=== PATIENT | female | born 1965 | race African-American/Black ===

== ENCOUNTER → 2017-05-12 | Day surgery (SDC) | payer BC ==
--- NOTE | 2017-05-12 09:35 | ULT ---
ULTRASOUND GUIDED CORE BIOPSY: Date: 05/12/17 HISTORY: Suspicious mass within the lateral aspect of the left breast. FINDINGS: Informed consent for ultrasound guided core biopsy of the left breast mass obtained prior to the pro cedure. Preprocedural imaging reidentified a hypoechoic, shadowing, irregular solid mass at the 3 o'clock po sition of the left breast measuring in the 6-7 mm range. Skin overlying the lesion was prepped and draped in the normal sterile fashion and anesthetized with 1% buffered lidocaine. With direct sonographic guidance, three 14 gauge core biopsies were obtained through the lesion. Imaging demonstrates the biopsy needle to pass through the lesion on all three passes. Subsequently, a post biopsy clip was placed within the lesion. The patient was sent to mammo graphy to confirm marker placement. The patient tolerated the procedure well. IMPRESSION: Successful ultrasound guided core biopsy of left breast mass as detailed above. POS: MASON
--- NOTE | 2017-05-12 10:11 | MMO ---
DIAGNOSTIC MAMMOGRAM: Date: 05-12-17 History: 52-year-old female with a suspicious lesion at the 3 o'clock position of the left breast st atus post ultrasound guided core biopsy. This study was performed to evaluate post biopsy clip place ment. FINDINGS: This study is interpreted with the assistance of computer aided detection. The breast parenchyma is heterogeneously dense, limiting mammographic sensitivity. The post biopsy clip is seen within the upper outer left breast overlying the area of concern on tammy or mammography. There are punctate nonspecific calcifications in this region. The clip is in the reg ion of a subtle irregular mass, partially obscured by post biopsy change. IMPRESSION: 1. BIRADS 4 - suspicious abnormality. 2. Successful clip placement in proper position, overlying the region of concern seen on prior mammo graphy. Pathology pending. POS: MASON
== END ==
LOC: ULT 08:24
PROVIDERS: ATTEND Family Medicine
PROC: 0HBU3ZX Excision of Left Breast, Percutaneous Approach, Diagnostic (ICD-10-PCS; principal; 2017-05-12)
PROC: BH01ZZZ Plain Radiography of Left Breast (ICD-10-PCS; principal; 2017-05-12)
DX: R92.8 Other abnormal and inconclusive findings on diagnostic imaging of breast (principal)
CPT/HCPCS: 19083; 88305; 88361; G0206-LT

== ENCOUNTER 2018-05-21 14:33 | Outpatient (CLI) | payer BC | END 2018-05-21 14:34 | disposition home or self-care (01) | LOC: BICMAMMO 14:33 | PROVIDERS: ATTEND Radiology Radiation Oncology | DX: C50.912 Malignant neoplasm of unspecified site of left female breast (principal); Z85.3 Personal history of malignant neoplasm of breast; Z98.890 Other specified postprocedural states | CPT/HCPCS: 77066; G0279 ==

== ENCOUNTER 2018-12-30 12:56 | Outpatient (CLI) | payer BC ==
--- NOTE | 2018-12-30 13:45 | BD ---
DEXA BONE SCAN: HISTORY: Age-related osteoporosis. DEXA bone scan was performed using Hologic bone mineral density unit. FINDINGS: Lumbar Spine: BMD (g/cm2) L1 0.93 T-Score: -0.6 Z-Score: -0.3 L2 0.94 T-Score: -0.8 Z-Score: -0.5 L3 1.04 T-Score: -0.4 Z-Score: -0.1 L4 0.97 T-Score: -0.8 Z-Score: -0.5 L1-L4 0.97 T-Score: -0.7 Z-Score: -0.4 Left Hip: Femoral Neck: 0.71 T-Score: -1.2 Z-Score: -0.8 Total Femur: 0.95 T-Score: 0.0 Z-Score: 0.0 Findings compatible with osteopenia. The patient has the following bone mineral fracture risk: Major osteoporotic fracture risk of 3.6% a nd hip fracture risk of 0.2%. IMPRESSION: Normal bone mineral density. The patient does not have significant increased risk of osteoporotic fra ctures. Transcribed Date/Time: 12/30/2018 2:33 PM
== END 2018-12-30 12:57 | disposition home or self-care (01) ==
LOC: BICMAMMO 12:56
PROVIDERS: ATTEND Internal Medicine Medical Oncology
DX: Z13.820 Encounter for screening for osteoporosis (principal); C50.412 Malignant neoplasm of upper-outer quadrant of left female breast
CPT/HCPCS: 77080

== ENCOUNTER 2019-05-26 09:35 | Outpatient (CLI) | payer BC ==
--- NOTE | 2019-05-26 10:27 | MMO ---
Bilateral MAMMO Bilat Diag [facility]. CLINICAL HISTORY: Patient is 54 years old and is seen for diagnostic exam. The patient has no family history of breast cancer. The patient has a history of Stereotactic core biopsy procedure revealed invasive ductal left breast carcinoma in April,. The patient has a history of left Excisional Biopsy in 2008 - benign, left Excisional Biopsy in 2006 - benign and left Excisional Biopsy in November 2004 - benign. VIEWS: The views performed were: bilateral craniocaudal with tomosynthesis; bilateral mediolateral oblique with tomosynthesis; and bilateral mediolateral with tomosynthesis. FILMS COMPARED: The present examination has been compared to prior imaging studies performed at [facility] on 09/25/2015, 01/27/2017, 02/09/2017 and 05/21/2018. This study has been interpreted with the assistance of computer-aided detection. MAMMOGRAM FINDINGS: The breasts are heterogeneously dense, which could obscure a lesion on mammography. There are no suspicious masses, suspicious calcifications, or new areas of architectural distortion. IMPRESSION: THERE IS NO MAMMOGRAPHIC EVIDENCE OF MALIGNANCY. A ROUTINE FOLLOW-UP MAMMOGRAM IN 1 YEAR IS RECOMMENDED. THE RESULTS OF THIS EXAM WERE SENT TO THE PATIENT. ACR BI-RADS Category 1 - Negative MAMMOGRAPHY NOTE: 1. A negative mammogram report should not delay a biopsy if a dominant of clinically suspicious mass is present. 2. Approximately 10% to 15% of breast cancers are not detected by mammography. 3. Adenosis and dense breasts may obscure an underlying neoplasm. Reported by: Aquilino BRAGG Electonically Signed: [id number]
== END 2019-05-26 09:36 | disposition home or self-care (01) ==
LOC: BICMAMMO 09:35
PROVIDERS: ATTEND Family Medicine
DX: C50.919 Malignant neoplasm of unspecified site of unspecified female breast (principal)
CPT/HCPCS: 77066; G0279

== ENCOUNTER 2020-05-28 10:06 | Outpatient (CLI) | payer BC ==
--- NOTE | 2020-05-28 10:36 | MMO ---
Bilateral MAMMO Bilat Diag [facility]. CLINICAL HISTORY: Patient is 55 years old and is seen for screening. The patient has no family history of breast cancer. The patient has a history of Stereotactic core biopsy procedure revealed invasive ductal left breast carcinoma in April,. The patient has a history of left Stereotatic Biopsy in 2016 - invasive ductal carcinoma, left Lumpectomy in 2016 - invasive ductal carcinoma, left Excisional Biopsy in 2008 - benign, left Excisional Biopsy in 2006 - benign and left Excisional Biopsy in November 2004 - benign. VIEWS: The views performed were: bilateral craniocaudal with tomosynthesis; bilateral mediolateral oblique with tomosynthesis; and bilateral mediolateral with tomosynthesis. FILMS COMPARED: The present examination has been compared to prior imaging studies performed at [facility] on 01/27/2017, 02/09/2017, 05/21/2018 and 05/26/2019. This study has been interpreted with the assistance of computer-aided detection. MAMMOGRAM FINDINGS: The breasts are heterogeneously dense, which could obscure a lesion on mammography. There is a stable post-surgical scar seen in the left breast. There are no suspicious masses, suspicious calcifications, or new areas of architectural distortion. IMPRESSION: THERE IS NO MAMMOGRAPHIC EVIDENCE OF MALIGNANCY. A ROUTINE FOLLOW-UP MAMMOGRAM IN 1 YEAR IS RECOMMENDED. THE RESULTS OF THIS EXAM WERE SENT TO THE PATIENT. ACR BI-RADS Category 2 - Benign finding MAMMOGRAPHY NOTE: 1. A negative mammogram report should not delay a biopsy if a dominant of clinically suspicious mass is present. 2. Approximately 10% to 15% of breast cancers are not detected by mammography. 3. Adenosis and dense breasts may obscure an underlying neoplasm. Reported by: JOHN TOTH MD Electonically Signed: [id number]
== END 2020-05-28 10:07 | disposition home or self-care (01) ==
LOC: BICMAMMO 10:06
PROVIDERS: ATTEND Family Medicine
DX: C50.912 Malignant neoplasm of unspecified site of left female breast (principal)
CPT/HCPCS: 77066; G0279

== ENCOUNTER 2021-06-04 08:59 | Outpatient (CLI) | payer BC | END 2021-06-04 09:00 | disposition home or self-care (01) | LOC: BICMAMMO 08:59 | PROVIDERS: ATTEND Family Medicine | DX: C50.412 Malignant neoplasm of upper-outer quadrant of left female breast (principal) | CPT/HCPCS: 77066; G0279 ==

== ENCOUNTER 2022-06-06 08:07 | Outpatient (CLI) | payer BC | END 2022-06-06 08:08 | disposition home or self-care (01) | LOC: BICMAMMO 08:07 | PROVIDERS: ATTEND Internal Medicine Medical Oncology | DX: M85.89 Other specified disorders of bone density and structure, multiple sites (principal); C50.412 Malignant neoplasm of upper-outer quadrant of left female breast; Z98.890 Other specified postprocedural states | CPT/HCPCS: 77066; 77080; G0279 ==

== ENCOUNTER 2023-07-07 11:05 | Outpatient (CLI) | payer BC | END 2023-07-07 11:06 | disposition home or self-care (01) | LOC: BICMAMMO 11:05 | PROVIDERS: ATTEND Family Medicine Sports Medicine | DX: Z12.31 Encounter for screening mammogram for malignant neoplasm of breast (principal); Z91.89 Other specified personal risk factors, not elsewhere classified; Z98.890 Other specified postprocedural states; Z85.3 Personal history of malignant neoplasm of breast | CPT/HCPCS: 77063; 77067 ==

== ENCOUNTER 2024-09-12 07:45 | Outpatient (CLI) | payer BC | END 2024-09-12 07:46 | disposition home or self-care (01) | LOC: BICULT 07:45 | PROVIDERS: ATTEND Physician Assistant | DX: R94.4 Abnormal results of kidney function studies (principal) | CPT/HCPCS: 76770 ==

== ENCOUNTER 2024-09-12 09:00 | Outpatient (CLI) | payer BC | END 2024-09-12 09:01 | disposition home or self-care (01) | LOC: BICMAMMO 09:00 | PROVIDERS: ATTEND Internal Medicine | DX: Z12.31 Encounter for screening mammogram for malignant neoplasm of breast (principal); Z86.000 Personal history of in-situ neoplasm of breast; Z98.890 Other specified postprocedural states; Z91.89 Other specified personal risk factors, not elsewhere classified | CPT/HCPCS: 77063; 77067 ==